=== PATIENT | male | born 1995 | race Two or more races ===

== ENCOUNTER 2023-08-05 11:33 | Inpatient (IN) | payer MEDICAID, OTHER ==
[~2023-08-05] VITALS: Ht 177.8 cm; Wt 79.9 kg
[2023-08-05] MEDS ORDERED: PANTOPRAZOLE 40 MG/10 ML VIAL INJ IV ONE (11:45)
[2023-08-05 12:09] LABS: Basophils # (auto) 0.1 10 ^3/uL (0-0.2); Basophils % (auto) 0.9 % (0.0-2.0); Eosinophils # (auto) 0 10 ^3/uL (0-0.8); Eosinophils % (auto) 0.3 % (0.0-7.0); Hematocrit 47.2 % (41.0-53.0); Hemoglobin 15.9 g/dL (13.5-17.5); Lymphocytes # (auto) 1.3 10 ^3/uL (0.4-5.4); Lymphocytes % (auto) 17.2 % (10.0-50.0); Mean Corpuscular Hemoglobin 28.6 pg (28.0-32.0); Mean Corpuscular Hgb Conc. 33.6 g/dL (32.0-36.0); Mean Corpuscular Volume 85.1 fL (80.0-100.0); Monocytes # (auto) 0.4 10 ^3/uL (0-1.3); Monocytes % (auto) 5.8 % (0.0-12.0); Neutrophils # (auto) 5.7 10 ^3/uL (1.6-8.6); Neutrophils % (auto) 75.8 % (37.0-80.0); Nucleated Red Blood Cells % 0.2 %; Red Blood Cells 5.55 10^6/uL (4.5-5.90); Red Cell Distribution Width 13.7 % (11.8-14.3); White Blood Cell 7.6 10^3/uL (4.4-10.8)
[2023-08-05 12:27] LABS: INR 1.11 (0.9-1.15); Partial Thromboplastin Time 28.5 SEC (24.5-34.5); Prothrombin Time 11.6 sec (9.3-11.8)
[2023-08-05 12:39] LABS: Alanine Aminotransferase 82 U/L (7-40); Albumin 4.7 g/dL (3.2-4.8); Alkaline Phosphatase 129 U/L (46-116); Anion Gap 8 (5-15); Aspartate Aminotransferase 101 U/L (13-40); BUN/Creatinine Ratio 19.4 (10.0-20.0); Bilirubin, Total 2.1 mg/dL (0.2-1.0); Blood Urea Nitrogen 20 mg/dL (9-23); Calcium 9.2 mg/dL (8.7-10.4); Carbon Dioxide 29 mmol/L (20-30); Chloride 102 mmol/L (98-107); Glucose 97 mg/dL (74-106); Lipase 216 U/L (12-53); Potassium 4.2 mmol/L (3.5-5.1); Sodium 139 mmol/L (136-145); Total Protein 7.2 g/dL (5.7-8.2)
[2023-08-05 14:02] LABS: Urine Bacteria NONE SEEN /hpf (None Seen); Urine Blood Negative /uL (Negative); Urine Clarity Clear (Clear); Urine Color Yellow (Yellow); Urine Protein, UAD Negative (Negative); Urine Specific Gravity 1.023 (1.001-1.035); Urine Urobilinogen Normal (Negative); Urine WBC <1 /hpf (0 - 3)
[2023-08-05] MEDS ORDERED: ONDANSETRON HCL 4 MG/2 ML VIAL IV PRN (15:15)
[2023-08-05] MEDS ORDERED: ACETAMINOPHEN 325 MG TAB PO PRN (15:15)
[2023-08-05] MEDS ORDERED: DOCUSATE SOD 100 MG CAP PO PRN (15:15)
[2023-08-05] MEDS ORDERED: SODIUM CHLORIDE 0.9% 1,000 ML IV SCH (15:15)
[2023-08-05] MEDS ORDERED: MORPHINE SULFATE INJ 2 MG/ml SYRG IV PRN (15:15)
[2023-08-05] MEDS ORDERED: HYDROcodone-ACET 5/325MG TAB PO PRN (15:15)
[2023-08-05] MEDS ORDERED: LORazepam 2MG/ML-1ML VIAL IV PRN (15:15)
[2023-08-05 17:41] VITALS: BP 135/86; PULSE 75; RESP 18; TEMP 97.5; O2SAT 100
[2023-08-06] MEDS ORDERED: PANTOPRAZOLE 40 MG/10 ML VIAL INJ IV SCH (10:00)
[2023-08-06] MEDS ORDERED: FOLIC ACID 1 MG, MULTIPLE VITAMIN 10 ML, MAGNESIUM SULF SDV 50% 8 MEQ, THIAMINE INJ 100... INJ SCH ×5 (12:00)
== END 2023-08-05 20:29 | disposition left against medical advice (07) | DRG 282 ==
LOC: ER 11:33 → OVERFLOW 15:21
PROVIDERS: ADMIT Nurse Practitioner Family; ATTEND Nurse Practitioner Family
DX: K85.20 Alcohol induced acute pancreatitis without necrosis or infection (principal); K74.60 Unspecified cirrhosis of liver; F10.10 Alcohol abuse, uncomplicated; Z53.29 Procedure and treatment not carried out because of patient's decision for other reasons; R74.01 Elevation of levels of liver transaminase levels
CPT/HCPCS: 36415; 74176; 80053; 81001; 83690; 85025; 85610; 85730; C9113; G0378